=== PATIENT | female | born 1930 | race Caucasian/White ===

== ENCOUNTER → 2016-11-20 | Outpatient (CLI) | payer OTHER, MEDICARE ==
[~2016-11-20] MED LIST: ACET650T97 PO; ASCO500T16 PO; ASPI1TAB83 PO; CALCTAB65; CLOP1TAB54 PO; COEN1CAP17 PO; CPR500 PO; DOCU100T7 PO; LPT/40 PO; METO50TA7 PO; MULT-190 PO; MULTTAB58 PO; NITR50CA PO; NTRGSL/4 UT; PANT40TA PO; TRAM-10 PO
[2016-11-20 15:53] LABS: ALT/SGPT 28 U/L (12-78); AST/SGOT 20 U/L (15-37); BLOOD UREA NITROGEN 16 mg/dl (7-18); BUN/CREATININE RATIO 24.3 (10-20); CALCIUM 9.3 mg/dl (8.5-10.1); CARBON DIOXIDE 29 mmol/L (21-32); CHLORIDE 110 mmol/L (98-107); CREATININE 0.66 mg/dl (0.60-1.20); GLUCOSE 93 mg/dl (70-99); SODIUM 143 mmol/L (136-145)
[2016-11-20 16:00] LABS: ALB/GLOB RATIO 1.1 (0.9-2); ALKALINE PHOSPHATASE 73 U/L (45-117); CHOLESTEROL 135 mg/dl (0-200); CHOLESTEROL/HDL RATIO 2.4; HDL CHOLESTEROL 56 mg/dl; LDL CHOLESTEROL CALCULATED 51 mg/dl; TRIGLYCERIDES 140 mg/dl (0-150); VERY LOW DENSITY LIPOPROT CALC 28 mg/dl
== END | disposition home or self-care (01) ==
LOC: C.LABBC 10:55
PROVIDERS: ATTEND Internal Medicine Cardiovascular Disease
DX: E78.5 Hyperlipidemia, unspecified (principal)

== ENCOUNTER → 2016-11-26 | Outpatient (CLI) | payer OTHER, MEDICARE | END | disposition home or self-care (01) | LOC: C.LAB1850 15:19 | PROVIDERS: ATTEND Internal Medicine Cardiovascular Disease | DX: M79.1 Myalgia (principal) ==

== ENCOUNTER → 2016-12-05 | Outpatient (CLI) | payer OTHER, MEDICARE | END | disposition home or self-care (01) | LOC: C.PATHSPEC 18:09 | PROVIDERS: ATTEND Plastic Surgery | DX: M71.4 Calcium deposit in bursa (principal) ==

== ENCOUNTER → 2017-02-18 | Outpatient (CLI) | payer OTHER, MEDICARE ==
[~2017-02-18] MED LIST changes: -CPR500 PO; -NITR50CA PO
--- NOTE | 2017-02-18 17:13 | DIAGNOSTIC IMAGING REPORT ---
LUMBAR SPINE W/O CONTRAST HISTORY: Pain. Radiculopathy. LUMBAR RADICULOPATHY TECHNIQUE: Multiplanar multisequence MRI of the lumbar spine was performed without the use of contrast. COMPARISON: None. FINDINGS: For the purpose of the report the L5-S1 disc space will be located on axial image 27 of 30. Considerable degenerative disc change throughout. Degenerative change of the vertebral endplates throughout the entire lumbar spine. No evidence for subluxation. No significant bone marrow replacing process. L1-L2: Mild broad-based disc bulge. Minimal impact anterior thecal sac. L2-L3: Mild broad-based bulging disc with mild impact anterior thecal sac. Minimal narrowing of the neuroforamina bilaterally. L3-L4: Significant multifactorial spinal stenosis. Considerable hypertrophic change of the posterior elements and ligamentum flavum. Mild narrowing of the neuroforamina bilaterally. L4-L5: Severe to critical multifactorial spinal stenosis. Considerable hypertrophic change posterior elements. Broad-based disc herniation. Moderate to rather significant narrowing of the neuroforamina bilaterally. L5-S1: Mild broad-based bulging disc with minimal impact anterior thecal sac. Moderate narrowing right and to lesser extent left neural foramina. 1. IMPRESSION: 1. Severe/critical multifactorial spinal stenosis L4-L5. 2. Significant multifactorial spinal stenosis L3-L4. 3. Mild disc bulges at all additional levels with minimal impact anterior thecal sac. 4. Moderate narrowing of the neuroforamina bilaterally at multiple levels with no evidence for a critical or high-grade degree of foraminal stenosis. The above report was generated using voice recognition software. It may contain grammatical, syntax or spelling errors. Electronically signed by: Lawson Jay M.D. 02/18/2017 5:12 PM Dictated Date/Time: 02/18/2017 5:07 PM
== END | disposition home or self-care (01) ==
LOC: C.MRIBC 15:44
PROVIDERS: ATTEND Physician Assistant Medical
DX: M48.06 Spinal stenosis, lumbar region (principal); M54.16 Radiculopathy, lumbar region

== ENCOUNTER → 2017-10-08 | Outpatient (CLI) | payer OTHER, MEDICARE ==
[~2017-10-08] MED LIST changes: -METO50TA7 PO; +METO50TA8 PO
--- NOTE | 2017-10-08 15:35 | DIAGNOSTIC IMAGING REPORT ---
LUMBAR SPINE W/O CONTRAST HISTORY: Spinal stenosis M48.061 Lumbar spinal [id number] TECHNIQUE: Multiplanar multisequence MRI of the lumbar spine was performed without the use of contrast. COMPARISON: 02/18/2017 FINDINGS: For the purpose of the report the L5-S1 disc space will be located on axial image 23 of 25. Signal characteristics of the vertebral bodies are unremarkable. Mild degenerative disc change throughout. Spinal stenosis noted at L4-L5 and L3-L4. L1-L2: Mild broad-based bulging disc. Mild impact anterior thecal sac. Mild narrowing of the left and to a lesser extent right neural foramina. L2-L3: Broad-based bulging disc with mild impact upon the anterior thecal sac. No change from the prior study. L3-L4: Significant high-grade multifactorial spinal stenosis. Broad-based bulging disc. Hypertrophic change posterior elements. Mild narrowing of the neuroforamina bilaterally. No change in the prior study. L4-L5: Severe multifactorial spinal stenosis. Broad-based bulging disc. Considerable hypertrophic changes of posterior elements. Moderate narrowing of the neuroforamina bilaterally. L5-S1: Minimal disc bulge. No impact upon the thecal sac or associated neural foramina. Degenerative change posterior elements. IMPRESSION: 1. Severe multifactorial spinal stenosis L4-L5. This is unchanged in the prior study. 2. Significant to severe multifactorial spinal stenosis L3-L4. This is also unchanged from the prior study. 3. Broad-based bulging disc at all additional levels unchanged from the prior study. The above report was generated using voice recognition software. It may contain grammatical, syntax or spelling errors. Electronically signed by: Lawson Jay M.D. 10/08/2017 3:34 PM Dictated Date/Time: 10/08/2017 3:28 PM
== END | disposition home or self-care (01) ==
LOC: C.MRIBC 14:43
PROVIDERS: ATTEND Internal Medicine
DX: M48.061 Spinal stenosis, lumbar region without neurogenic claudication (principal)

== ENCOUNTER → 2017-11-10 | Outpatient (CLI) | payer OTHER, MEDICARE ==
[2017-11-10 14:13] LABS: ALBUMIN 3.4 gm/dl (3.4-5.0); ALKALINE PHOSPHATASE 65 U/L (45-117); ALT/SGPT 25 U/L (12-78); AST/SGOT 18 U/L (15-37); BLOOD UREA NITROGEN 18 mg/dl (7-18); CALCIUM 8.9 mg/dl (8.5-10.1); CARBON DIOXIDE 28 mmol/L (21-32); CREATININE 0.66 mg/dl (0.60-1.20); GLUCOSE 82 mg/dl (70-99); POTASSIUM 3.7 mmol/L (3.5-5.1); SODIUM 142 mmol/L (136-145)
[2017-11-10 14:18] LABS: CHOLESTEROL 116 mg/dl (0-200); LDL CHOLESTEROL CALCULATED 40 mg/dl; TOTAL PROTEIN 6.6 gm/dl (6.4-8.2)
== END | disposition home or self-care (01) ==
LOC: C.LABBC 09:41
PROVIDERS: ATTEND Internal Medicine Cardiovascular Disease
DX: L82.1 Other seborrheic keratosis (principal); I25.10 Atherosclerotic heart disease of native coronary artery without angina pectoris; E78.5 Hyperlipidemia, unspecified

== ENCOUNTER → 2017-11-20 | Outpatient (CLI) | payer OTHER, MEDICARE ==
[2017-11-20 17:11] LABS: BASO % 0.5 %; BASO ABS # 0.03 K/uL (0-0.2); EOS % 1.4 %; EOS ABS # 0.08 K/uL (0-0.5); HEMATOCRIT 39.9 % (37-47); HEMOGLOBIN 13.2 g/dL (12.0-16.0); IG# 0.01 K/uL (0.00-0.02); LYMPH % 25.6 %; MEAN CELL VOLUME 93.9 fL (80-100); MEAN CORPUSCULAR HEMOGLOBIN 31.1 pg (25-34); MEAN CORPUSCULAR HGB CONC 33.1 g/dl (32-36); MEAN PLATELET VOLUME 10.8 fL (7.4-10.4); MONO % 8.9 %; MONO ABS # 0.52 K/uL (0.11-0.59); NEUT % 63.4 %; NEUT ABS # 3.71 K/uL (1.4-6.5); PLATELET COUNT 279 K/uL (130-400); RED CELL DISTRIBUTION WIDTH CV 14.2 % (11.5-14.5); RED CELL DISTRIBUTION WIDTH SD 48.7 fL (36.4-46.3); WHITE BLOOD COUNT 5.85 K/uL (4.8-10.8)
[2017-11-20 17:48] LABS: BLOOD UREA NITROGEN 20 mg/dl (7-18); CALCIUM 8.8 mg/dl (8.5-10.1); CARBON DIOXIDE 30 mmol/L (21-32); CREATININE 0.75 mg/dl (0.60-1.20); GLUCOSE 120 mg/dl (70-99); POTASSIUM 3.7 mmol/L (3.5-5.1); SODIUM 142 mmol/L (136-145)
== END | disposition home or self-care (01) ==
LOC: C.LABBC 15:30
PROVIDERS: ATTEND Neurological Surgery
DX: Z01.810 Encounter for preprocedural cardiovascular examination (principal); I10 Essential (primary) hypertension